=== PATIENT | female | born 1960 | race Caucasian/White ===

== ENCOUNTER → 2017-02-07 | Outpatient (CLI) | payer OTHER ==
--- NOTE | 2017-02-07 16:15 | US ---
EXAMINATION TYPE: US renals and bladder DATE OF EXAM: 02/07/2017 3:06 PM COMPARISON: NONE CLINICAL HISTORY: 57-year-old female R31.9 Blood in Urine. TECHNIQUE: Multiple sonographic images of the kidneys and bladder were obtained. FINDINGS: Right Kidney: 11.4 x 3.9 x 4.7 cm with possible pelviectasis, image 8 of 36. No adia calyceal dilat ation. Left Kidney: 11.4 x 4.0 x 4.3 cm without hydronephrosis. Partial distention of the bladder limits its evaluation. IMPRESSION: 1. There may be mild pelviectasis on the right. No calyceal dilatation to suggest adia hydronephrosi s. Consider 3-6 month follow-up renal ultrasound to reassess this area. 2. No hydronephrosis on the left.
== END | disposition home or self-care (01) ==
LOC: RADUSWWP 14:46
PROVIDERS: ATTEND Family Medicine
DX: R31.9 Hematuria, unspecified (principal)
CPT/HCPCS: 76770

== ENCOUNTER 2021-12-02 07:26 | Day surgery (SDC) | payer OTHER ==
[2021-11-29 12:11] VITALS: BMI 21.7
[~2021-12-02 07:26] MED LIST: ALPRAZolam 0.25 MG TAB PO PRN; ALPRAZolam 0.5 MG TAB PO PRN; ASPIRIN 325 MG TAB PO STA; ATORVASTATIN 80 MG TAB PO STA; NITROGLYCERIN SL TABS 0.4 MG TAB SUBLINGUAL PRN; SODIUM CHLORIDE 0.9% 1,000 ML in EMPTY BAG 1 BAG IV SCH
[2021-12-02] MEDS ORDERED: SODIUM CHLORIDE 0.9% 1,000 ML IV ONE (07:52)
[2021-12-02 07:56] LABS: Glucose,Whole Blood 147 mg/dL (75-99)
[2021-12-02 08:07] VITALS: RESP 16; TEMP 98.3
[2021-12-02 08:37] LABS: Basophils % (A) 0 %; Eosinophils # (A) 0.2 k/uL (0-0.7); Eosinophils % (A) 1 %; HCT 40.9 % (34.0-46.0); HGB 13.4 gm/dL (11.4-16.0); Lymphocytes # (A) 1.8 k/uL (1.0-4.8); Lymphocytes % (A) 17 %; MCH 30.8 pg (25.0-35.0); MCHC 32.9 g/dL (31.0-37.0); MCV 93.6 fL (80.0-100.0); Mean Platelet Volume 8.6; Monocytes # (A) 0.5 k/uL (0-1.0); Monocytes % (A) 4 %; Neutrophils # (A) 7.8 k/uL (1.3-7.7); Neutrophils % (A) 75 %; Platelet Count 261 k/uL (150-450); RBC 4.37 m/uL (3.80-5.40); RDW 13.9 % (11.5-15.5); WBC 10.3 k/uL (3.8-10.6)
[2021-12-02 08:57] LABS: African American GFR (CKD) >90 (>60 ml/min/1.73 sqM); Anion Gap 6 mmol/L; Blood Urea Nitrogen 13 mg/dL (7-17); Calcium 9.6 mg/dL (8.4-10.2); Carbon Dioxide 27 mmol/L (22-30); Chloride 108 mmol/L (98-107); Glucose 145 mg/dL (74-99); Non-African American GFR(CKD) 89 (>60 ml/min/1.73 sqM); Potassium 3.7 mmol/L (3.5-5.1); Sodium 141 mmol/L (137-145)
[2021-12-02] MEDS ORDERED: LIDOCAINE 1% INJ 10MG/ML (20 ML MDV) ONE (09:02)
[2021-12-02] MEDS ORDERED: VERAPAMIL 2.5 MG/ML 2 ML AMP ONE (09:02)
[2021-12-02] MEDS ORDERED: HEPARIN SODIUM 1,000 UN/ML (10ML VL) ONE (09:02)
[2021-12-02] MEDS ORDERED: fentaNYL (PF) 50 MCG/ML 2 ML AMP ONE (09:02)
[2021-12-02] MEDS ORDERED: fentaNYL (PF) 50 MCG/ML 2 ML AMP IV ONE (09:32)
[2021-12-02] MEDS ORDERED: MIDAZOLAM 2 MG/2 ML VIAL IV ONE (09:32)
[2021-12-02] MEDS ORDERED: LIDOCAINE 1% INJ 10MG/ML (20 ML MDV) SQ ONE (09:34)
[2021-12-02] MEDS ORDERED: IOPAMIDOL-370 100ML BTL INJ ONE (09:46)
[2021-12-02] MEDS ORDERED: RX INFO: IV CONTRAST WAS GIVEN 1 EACH MISC MISCELLANE PRN (09:59)
[2021-12-02] MEDS ORDERED: SODIUM CHLORIDE 0.9% 1,000 ML IV SCH (10:00)
--- NOTE | 2021-12-02 10:08 | P.CARDCATH ---
Date of Procedure: 12/02/21 Preoperative Diagnosis: Cardiomyopathy, abnormal dobutamine stress echo Postoperative Diagnosis: Mild coronary artery disease, elevated end-diastolic pressure Procedure(s) Performed: Left heart catheterization without left ventriculography Description of Procedure: HISTORY: This is a 61-year-old female with history of hypercholesterolemia and smoking and also known coronary artery disease was noted to have cardiomyopathy with ejection fraction of 45%. Apparently dobutamine echo showed abnormal findings. Patient was advised to have a cardiac catheterization to rule out any progression of ischemic heart disease CONSENT:I have discussed the risks, benefits and alternative therapies for the above-mentioned procedure and for both sedation/analgesia as well as necessary blood product administration, if indicated, as they pertain to this patient. The patient has indicated understanding and acceptance of the risks and procedures discussed. PROCEDURE: Patient was brought to the lab in a fasting state. Patient was given some IV sedation. The right groin is infiltrated with lidocaine and right femoral artery was entered using Seldinger technique. A 6-Gambian catheter was left in place and selective coronary arteriography and left ventriculography was performed. Patient tolerated the procedure well. Femoral angiogram was performed and manual compression was applied for hemostasis, as puncture is close to the bifurcation of the femoral artery. No immediate complications were noted and patient was transferred to [facility] in a stable condition Conscious Sedation: Versed 1 mg Fentanyl 25 g Duration 14minutes HEMODYNAMICS: The aortic pressure is about 110/70. The left ventricle end- diastolic pressure is about 20. There was no gradient across the aortic valve SELECTIVE CORONARY ARTERIOGRAPHY: LEFT MAIN: Normal length and free of occlusive disease THE LEFT ANTERIOR DESCENDING CORONARY ARTERY:. Good caliber vessel reaching the apex and gives rise to good-sized this septal and diagonal branches. Minimal plaque in midportion. Otherwise free of any significant occlusive disease THE LEFT CIRCUMFLEX AND IS CORONARY ARTERY:. Nondominant vessel with the good-sized OM branch. Free of any significant occlusive disease THE RIGHT CORONARY ARTERY:. Dominant vessel giving rise to PDA and PLV. There is diffuse disease involving the proximal to mid segment with areas of about 40% stenosis LEFT VENTRICULOGRAPHY: Not performed FINAL IMPRESSION:. Mild coronary artery disease especially involving the right coronary artery. Left coronary system is free of any significant occlusive disease. Elevated end-diastolic pressure PLAN:. Continues to a maximum medical therapy and this factor modification. I will also add Aldactone 12.5 with no by mouth daily PROGNOSIS: Guarded. Follow-up with Dr. Torres
[2021-12-02 13:50] VITALS: PULSE 57
[2021-12-02 15:41] VITALS: BP 132/72
== END 2021-12-02 17:22 | disposition home or self-care (01) ==
LOC: CATHCVL 07:26
PROVIDERS: ATTEND Internal Medicine Cardiovascular Disease
DX: R94.39 Abnormal result of other cardiovascular function study (principal); I25.10 Atherosclerotic heart disease of native coronary artery without angina pectoris; I10 Essential (primary) hypertension; E11.9 Type 2 diabetes mellitus without complications; E78.5 Hyperlipidemia, unspecified; Q87.2 Congenital malformation syndromes predominantly involving limbs; Q21.1 Atrial septal defect; I42.9 Cardiomyopathy, unspecified; I49.5 Sick sinus syndrome; F17.210 Nicotine dependence, cigarettes, uncomplicated; Z79.82 Long term (current) use of aspirin; Z79.899 Other long term (current) drug therapy
CPT/HCPCS: 93458; 80048; 85025; 87635; C1894; C1769 ×2; J2250; J2001; J3010; Q9967

== ENCOUNTER 2023-12-19 07:01 | Day surgery (SDC) | payer OTHER ==
[~2023-12-19 07:01] MED LIST changes: -ALPRAZolam 0.25 MG TAB PO PRN; -ALPRAZolam 0.5 MG TAB PO PRN; -ASPIRIN 325 MG TAB PO STA; -ATORVASTATIN 80 MG TAB PO STA; +LACTATED RINGERS 1,000 ML IV SCH; +LIDOCAINE 1% (10MG/ML) FOR IV START INTRADERMA PRN; -NITROGLYCERIN SL TABS 0.4 MG TAB SUBLINGUAL PRN; -SODIUM CHLORIDE 0.9% 1,000 ML in EMPTY BAG 1 BAG IV SCH
[2023-12-19 07:32] LABS: Glucose,Whole Blood 174 mg/dL (70-110)
[2023-12-19 07:48] VITALS: TEMP 98
[2023-12-19] MEDS ORDERED: MIDAZOLAM 2 MG/2 ML VIAL ONE (08:13)
[2023-12-19] MEDS ORDERED: PROPOFOL 10 MG/ML 20 ML VIAL IV ONE (08:13)
[2023-12-19] MEDS ORDERED: GLYCOPYRROLATE 0.2 MG/ML 2 ML VIAL ONE (08:13)
[2023-12-19] MEDS ORDERED: fentaNYL (PF) 50 MCG/ML 2 ML AMP ONE (08:13)
--- NOTE | 2023-12-19 08:27 | P.PCN ---
Date of Procedure: 12/19/23 Procedure(s) Performed: BRIEF HISTORY: Patient is a 63-year-old pleasant white female scheduled for an elective colonoscopy as a part of screening for colon cancer/positive cologuard. PROCEDURE PERFORMED: Colonoscopy with biopsy. PREOPERATIVE DIAGNOSIS: Screening for colon cancer/positive cologuard.. IV sedation per Anesthesia. PROCEDURE: After informed consent was obtained, the patient, was brought into the endoscopy unit. IV sedation was administered by Anesthesia under continuous monitoring. Digital rectal examination was normal. Initially the Olympus CF-160 flexible video colonoscope was then inserted in the rectum, gradually advanced into the cecum without any difficulty. Careful examination was performed as the scope was gradually being withdrawn. Ileocecal valve and the appendiceal orifice were visualized and appeared normal. Prep was excellent. Mucosa of the cecum had a 4 mm cecal polyp status post cold biopsy. Rest of the, ascending colon, transverse colon, descending colon, and rectum appeared normal. Sigmoid anastomosis was located at 40 cm from anal was there appeared widely patent. Scattered small diverticula seen. Retroflexion was performed in the rectum and no lesions were seen. The patient tolerated the procedure well. IMPRESSION: 4 mm cecal polyp status post-cold biopsy Scattered sigmoid diverticulosis RECOMMENDATIONS: Findings of this examination were discussed with the patient as well as her family. She was advised to follow with the biopsy results. If the biopsy results adenoma she can have a repeat colonoscopy in 5 years..
[2023-12-19 08:48] VITALS: BP 121/82; PULSE 75; RESP 16
== END 2023-12-19 09:18 | disposition home or self-care (01) ==
LOC: ORWHC2ENDO 07:01
PROVIDERS: ATTEND Internal Medicine Gastroenterology
DX: D12.0 Benign neoplasm of cecum (principal); K57.30 Diverticulosis of large intestine without perforation or abscess without bleeding; Z80.9 Family history of malignant neoplasm, unspecified; Z79.84 Long term (current) use of oral hypoglycemic drugs; Z79.899 Other long term (current) drug therapy; Z79.82 Long term (current) use of aspirin
CPT/HCPCS: 88305; 45380; J2250; J3010; J2704